=== PATIENT | male | born 1955 | race Caucasian/White ===

== ENCOUNTER 2020-09-18 19:38 | Emergency (ER) | payer OTHER ==
[~2020-09-18] VITALS: Ht 177.8 cm; Wt 69.4 kg
[2020-09-18 19:48] VITALS: BP 124/65
--- NOTE | 2020-09-18 20:33 | NUR ---
Labs sent at this time
[2020-09-18 20:50] LABS: ANION GAP 7 mmol/L (5-15); CALCIUM 12.4 mg/dL (8.5-10.1); CHLORIDE 104 mmol/L (98-107); CREATININE 1.06 mg/dL (0.7-1.3)
--- NOTE | 2020-09-18 21:22 | NUR ---
DICK Phillip at bedside.
--- NOTE | 2020-09-18 22:07 | NUR ---
Patient/Caregiver given discharge instructions and they have confirmed that they understand the instructions. Patient ambulatory with steady gait. NAD, all questions answered appropriately, denies additional needs at this time. No personal belongings left in room after discharge.
== END 2020-09-18 22:11 | disposition home or self-care (01) ==
LOC: ED 21:06
DX: C85.90 Non-Hodgkin lymphoma, unspecified, unspecified site (principal); E83.52 Hypercalcemia
CPT/HCPCS: 36415; 80048; 99283

== ENCOUNTER 2020-09-19 08:27 | Outpatient (CLI) | payer OTHER | END 2020-09-19 23:59 | disposition home or self-care (01) | LOC: RAD 08:27 | PROVIDERS: ATTEND Internal Medicine Hematology & Oncology | DX: C85.91 Non-Hodgkin lymphoma, unspecified, lymph nodes of head, face, and neck (principal) | CPT/HCPCS: 36573; C1751 ==